=== PATIENT | female | born 2000 | race Caucasian/White ===

== ENCOUNTER 2021-05-18 21:31 | Emergency (ER) | payer OTHER ==
[~2021-05-18] VITALS: Ht 160 cm; Wt 64.0 kg
[2021-05-18 21:57] VITALS: BP 126/69
--- NOTE | 2021-05-18 23:19 | NUR ---
PT IN TRIAGE FOR ERMD EVAL.
[2021-05-18] MEDS ORDERED: IBUP-2213 PO (23:20)
--- NOTE | 2021-05-18 23:25 | NUR ---
PT UP FOR DISCHARGE. PT GIVEN DISCHARGE INSTRUCTIONS AND MEDICATION INFORMATION BY DR. LANDIS. RX OF MOTRIN PROVIDED. PT AMBULATORY TO PERSONAL VEHICLE
== END 2021-05-18 23:25 | disposition home or self-care (01) ==
LOC: MED 22:15
DX: K11.20 Sialoadenitis, unspecified (principal)
CPT/HCPCS: 99282

== ENCOUNTER 2023-02-09 16:39 | Emergency (ER) | payer OTHER ==
[~2023-02-09] VITALS: Ht 162.6 cm; Wt 62.6 kg
[~2023-02-09 16:39] MED LIST: IBUP-2213 PO
[2023-02-09 17:01] VITALS: BP 110/74
--- NOTE | 2023-02-09 18:12 | NUR ---
Pt bibs for all over body rash x 3 days. Rash itches but is not painful. Pt has a hx of skin issues but has never had a rash all over her body. Pt is a/o x 4, vss, no ss of acute distress, breathing equal and unlabored, speech clear. In gown, awaiting md assessment.
[2023-02-09] MEDS ORDERED: PRED20TA5 PO (18:22)
[2023-02-09] MEDS ORDERED: DIPH25TA53 PO (18:22)
[2023-02-09 18:55] VITALS: BP 112/78
--- NOTE | 2023-02-09 18:56 | NUR ---
spoke with pt and then gave order for dc. Pt in stable condition. Pt is a/o x 4, vss, no ss of acute distress, breathing equal and unlabored, speech clear. ACI given and reviewed with pt. Pt verbalized understanding and will follow up with primary. Pt aware of px and px location.
== END 2023-02-09 18:56 | disposition home or self-care (01) ==
LOC: MED 16:39
DX: R21 Rash and other nonspecific skin eruption (principal); Z79.1 Long term (current) use of non-steroidal anti-inflammatories (NSAID)
CPT/HCPCS: 99281